=== PATIENT | female | born 1945 | race Caucasian/White ===

== ENCOUNTER 2021-04-03 14:08 | Inpatient (IN) ==
[2021-04-03] MEDS ORDERED: Dextrose Gel 15 GM/37.5 ML TUBE PO PRN ×2 (14:47)
[2021-04-03] MEDS ORDERED: D5% in Water 1,000 ML IVC PRN (14:47)
[2021-04-03] MEDS ORDERED: *HR* Dextrose 50 % in Water (Vial) 50 ML VIAL IVP PRN (14:47)
[2021-04-03] MEDS ORDERED: Ipratropium/Albuterol Neb 3 ML IH PRN (15:07)
[2021-04-03] MEDS: Insulin NPH/REG 70/30 100 UNIT/ML (x5UNIT) SUBQ SCH (16:31)
[2021-04-03] MEDS: Insulin LISPRO 300 UNITS/3 ML VIAL SUBQ SCH ×2 (16:31→20:23)
[2021-04-03] MEDS: Vancomycin Oral Soln 125 MG/2.5 ML UDC PO SCH ×2 (16:32→20:23)
[2021-04-03] MEDS ORDERED: Insulin NPH/REG 70/30 100 UNIT/ML (x5UNIT) SUBQ SCH (17:00)
[2021-04-03] MEDS: Lactobacillus 1 EACH CAP.SPRINK PO SCH (20:23)
[2021-04-03] MEDS: Sucralfate 1 GM TABLET PO SCH (20:23)
[2021-04-03] MEDS: Budesonide/Formoterol 80/4.5 1 PUFF INH IH SCH (21:30)
[2021-04-04] MEDS: *HR* Enoxaparin 40 MG/0.4 ML SYRINGE SQ SCH (06:31)
[2021-04-04 08:05] LABS: Basophils # 0.1 K/mcL (0.0-0.2); Basophils % 0.7 %; Eosinophils % 0.2 %; Hematocrit 27.9 % (35.3-44.9); Hemoglobin 8.9 g/dL (11.5-15.4); Immature Granulocytes % 10.2 % (0-4); Lymphocytes % 17.8 %; Mean Corpuscular HGB Conc 31.9 g/dL (31.6-35.5); Mean Corpuscular Hemoglobin 28.4 pg (28.0-33.3); Mean Corpuscular Volume 89.1 fL (83.0-100.0); Mean Platelet Volume 10.1 fL (9.4-12.4); Monocytes # 1.2 K/mcL (0.0-1.3); Monocytes % 10.6 %; Neutrophils # 6.8 K/mcL (1.6-8.9); Nucleated Red Blood Cells 0.6 /100 WBC (0); Platelet Count 409 K/mcL (140-400); Red Blood Count 3.13 M/mcL (3.82-4.97); Red Cell Distribution Width 15.4 % (11.5-14.5); Segmented Neutrophils % 60.5 %; White Blood Count 11.2 K/mcL (4.3-11.1)
[2021-04-04 08:18] LABS: BUN/Creatinine Ratio 37 (6-26); Blood Urea Nitrogen 34 mg/dL (8-23); Calcium 8.2 mg/dL (8.6-10.3); Carbon Dioxide 29 mEq/L (23-29); Chloride 97 mEq/L (98-107); Glucose 187 mg/dL (70-105); Osmolality,Calculated 291 (280-300); Potassium 4.6 mEq/L (3.5-5.1); Sodium 134 mEq/L (136-145); eGFR For African Americans > 60 (> 60); eGFR For Non-African Americans 59 (> 60)
[2021-04-04] MEDS: Vancomycin Oral Soln 125 MG/2.5 ML UDC PO SCH ×4 (08:34→20:23)
[2021-04-04] MEDS: dexAMETHasone 4 MG TABLET PO SCH (08:34)
[2021-04-04] MEDS: Aspirin 81 MG TAB.CHEW PO SCH (08:35)
[2021-04-04] MEDS: Isosorbide MONOnitrate (24 HR) 30 MG TAB.ER.24H PO SCH (08:35)
[2021-04-04] MEDS: Insulin NPH/REG 70/30 100 UNIT/ML (x5UNIT) SUBQ SCH ×2 (08:35→16:41)
[2021-04-04] MEDS: Lactobacillus 1 EACH CAP.SPRINK PO SCH ×2 (08:35→20:23)
[2021-04-04] MEDS: Insulin LISPRO 300 UNITS/3 ML VIAL SUBQ SCH ×6 (08:35→20:24)
[2021-04-04] MEDS: Budesonide/Formoterol 80/4.5 1 PUFF INH IH SCH ×2 (08:47→21:52)
[2021-04-04] MEDS ORDERED: Insulin NPH/REG 70/30 100 UNIT/ML (x5UNIT) SUBQ SCH ×2 (09:00→17:00)
[2021-04-04] MEDS: Sucralfate 1 GM TABLET PO SCH (20:23)
[2021-04-05] MEDS ORDERED: *HR* LORazepam 2 MG/ML VIAL IVP ONE (04:02)
[2021-04-05] MEDS ORDERED: Insulin LISPRO 300 UNITS/3 ML VIAL SUBQ ONE (04:16)
[2021-04-05] MEDS: *HR* Enoxaparin 40 MG/0.4 ML SYRINGE SQ SCH (05:42)
[2021-04-05] MEDS ORDERED: Insulin NPH/REG 70/30 100 UNIT/ML (x5UNIT) SUBQ SCH (08:00)
[2021-04-05] MEDS: Budesonide/Formoterol 80/4.5 1 PUFF INH IH SCH ×2 (08:29→22:27)
[2021-04-05] MEDS: Vancomycin Oral Soln 125 MG/2.5 ML UDC PO SCH ×4 (08:55→20:04)
[2021-04-05] MEDS: Insulin LISPRO 300 UNITS/3 ML VIAL SUBQ SCH ×4 (08:55→20:04)
[2021-04-05] MEDS: Lactobacillus 1 EACH CAP.SPRINK PO SCH ×2 (08:56→20:04)
[2021-04-05] MEDS: dexAMETHasone 4 MG TABLET PO SCH (08:56)
[2021-04-05] MEDS: Isosorbide MONOnitrate (24 HR) 30 MG TAB.ER.24H PO SCH (08:56)
[2021-04-05] MEDS: Aspirin 81 MG TAB.CHEW PO SCH (08:56)
[2021-04-05] MEDS: Insulin NPH/REG 70/30 100 UNIT/ML (x5UNIT) SUBQ SCH (17:03)
[2021-04-05] MEDS: Sucralfate 1 GM TABLET PO SCH (20:04)
[2021-04-05] MEDS: *HR* LORazepam 0.5 MG TABLET PO PRN (21:22)
[2021-04-06] MEDS: *HR* Enoxaparin 40 MG/0.4 ML SYRINGE SQ SCH (05:17)
[2021-04-06] MEDS: Aspirin 81 MG TAB.CHEW PO SCH (08:07)
[2021-04-06] MEDS: dexAMETHasone 4 MG TABLET PO SCH (08:08)
[2021-04-06] MEDS: Lactobacillus 1 EACH CAP.SPRINK PO SCH ×2 (08:08→21:23)
[2021-04-06] MEDS: Isosorbide MONOnitrate (24 HR) 30 MG TAB.ER.24H PO SCH (08:08)
[2021-04-06] MEDS: Vancomycin Oral Soln 125 MG/2.5 ML UDC PO SCH ×4 (08:09→21:23)
[2021-04-06] MEDS: Insulin LISPRO 300 UNITS/3 ML VIAL SUBQ SCH ×4 (08:12→21:23)
[2021-04-06] MEDS: Insulin NPH/REG 70/30 100 UNIT/ML (x5UNIT) SUBQ SCH ×2 (08:16→17:05)
[2021-04-06] MEDS: Budesonide/Formoterol 80/4.5 1 PUFF INH IH SCH ×2 (09:04→21:18)
[2021-04-06] MEDS: *HR* LORazepam 0.5 MG TABLET PO PRN (21:23)
[2021-04-06] MEDS: Sucralfate 1 GM TABLET PO SCH (21:23)
[2021-04-07] MEDS: *HR* Enoxaparin 40 MG/0.4 ML SYRINGE SQ SCH (05:36)
[2021-04-07] MEDS: Budesonide/Formoterol 80/4.5 1 PUFF INH IH SCH ×2 (09:50→20:51)
[2021-04-07] MEDS: Insulin LISPRO 300 UNITS/3 ML VIAL SUBQ SCH ×4 (10:32→20:25)
[2021-04-07] MEDS: Vancomycin Oral Soln 125 MG/2.5 ML UDC PO SCH ×4 (10:32→20:24)
[2021-04-07] MEDS: Aspirin 81 MG TAB.CHEW PO SCH (10:33)
[2021-04-07] MEDS: Isosorbide MONOnitrate (24 HR) 30 MG TAB.ER.24H PO SCH (10:33)
[2021-04-07] MEDS: dexAMETHasone 4 MG TABLET PO SCH (10:33)
[2021-04-07] MEDS: Lactobacillus 1 EACH CAP.SPRINK PO SCH ×2 (10:33→20:24)
[2021-04-07] MEDS: Insulin NPH/REG 70/30 100 UNIT/ML (x5UNIT) SUBQ SCH ×2 (10:37→17:17)
[2021-04-07] MEDS ORDERED: Insulin Human Regular 10 UNIT in 0.9 % Sodium Chloride 10 ML SUBQ ONE (11:47)
[2021-04-07] MEDS ORDERED: Insulin NPH 100 UNIT/ML (x5UNIT) SUBQ ONE (11:58)
[2021-04-07] MEDS ORDERED: Insulin LISPRO 300 UNITS/3 ML VIAL SUBQ ONE ×2 (12:15→13:32)
[2021-04-07] MEDS ORDERED: Perflutren Lipid Microsphere 1.3 ML in 0.9 % Sodium Chloride 8.7 ML IVP PRN (13:29)
[2021-04-07] MEDS ORDERED: *HR* Heparin 5,000 UNIT/ML VIAL IVP PRN ×2 (15:36)
[2021-04-07] MEDS ORDERED: *HR* Heparin 5,000 UNIT/ML VIAL IVP ONE (15:36)
[2021-04-07] MEDS ORDERED: Furosemide 20 MG/2 ML VIAL IVP SCH (15:45)
[2021-04-07 16:02] LABS: Hematocrit 27.3 % (35.3-44.9); Hemoglobin 8.6 g/dL (11.5-15.4); Mean Corpuscular HGB Conc 31.5 g/dL (31.6-35.5); Mean Corpuscular Hemoglobin 28.7 pg (28.0-33.3); Mean Platelet Volume 9.5 fL (9.4-12.4); Platelet Count 330 K/mcL (140-400); Red Cell Distribution Width 16.1 % (11.5-14.5)
[2021-04-07 16:35] LABS: Heparin anti-factor XA UFH 0.27 IU/mL (0.30-0.70)
[2021-04-07 16:36] LABS: INR 0.9; Prothrombin Time 10.7 Seconds (9.4-12.1)
[2021-04-07] MEDS: Heparin 25,000UNIT/250ML 1/2NS 25,000 UNIT/250 ML IV.SOLN IVC SCH (17:06)
[2021-04-07] MEDS: Furosemide 20 MG/2 ML VIAL IVP SCH (17:13)
[2021-04-07] MEDS ORDERED: 0.9 % Sodium Chloride 1,000 ML IVC SCH (19:30)
[2021-04-07] MEDS: Sucralfate 1 GM TABLET PO SCH (20:24)
[2021-04-07] MEDS: *HR* LORazepam 0.5 MG TABLET PO PRN (20:24)
[2021-04-08 04:14] LABS: Hematocrit 26.6 % (35.3-44.9); Hemoglobin 8.4 g/dL (11.5-15.4); Mean Corpuscular HGB Conc 31.6 g/dL (31.6-35.5); Mean Corpuscular Hemoglobin 28.6 pg (28.0-33.3); Mean Corpuscular Volume 90.5 fL (83.0-100.0); Mean Platelet Volume 10.2 fL (9.4-12.4); Platelet Count 338 K/mcL (140-400); Red Blood Count 2.94 M/mcL (3.82-4.97); Red Cell Distribution Width 15.9 % (11.5-14.5); White Blood Count 11.5 K/mcL (4.3-11.1)
[2021-04-08 05:52] LABS: Calcium 8.6 mg/dL (8.6-10.3); Potassium 5.2 mEq/L (3.5-5.1)
[2021-04-08] MEDS: Insulin LISPRO 300 UNITS/3 ML VIAL SUBQ SCH ×4 (09:04→20:28)
[2021-04-08] MEDS: Vancomycin Oral Soln 125 MG/2.5 ML UDC PO SCH ×4 (09:05→20:25)
[2021-04-08] MEDS: Furosemide 20 MG/2 ML VIAL IVP SCH (09:06)
[2021-04-08] MEDS: Lactobacillus 1 EACH CAP.SPRINK PO SCH ×2 (09:06→20:25)
[2021-04-08] MEDS: Isosorbide MONOnitrate (24 HR) 30 MG TAB.ER.24H PO SCH (09:06)
[2021-04-08] MEDS: Aspirin 81 MG TAB.CHEW PO SCH (09:06)
[2021-04-08] MEDS: Insulin NPH/REG 70/30 100 UNIT/ML (x5UNIT) SUBQ SCH ×2 (09:22→17:30)
[2021-04-08] MEDS: Budesonide/Formoterol 80/4.5 1 PUFF INH IH SCH ×2 (09:34→21:02)
[2021-04-08] MEDS: Heparin 25,000UNIT/250ML 1/2NS 25,000 UNIT/250 ML IV.SOLN IVC SCH (09:34)
[2021-04-08] MEDS ORDERED: Insulin LISPRO 300 UNITS/3 ML VIAL SUBQ ONE (11:15)
[2021-04-08 17:30] LABS: Basophils % 0.3 %; Eosinophils # 0.1 K/mcL (0.0-0.6); Eosinophils % 0.9 %; Hematocrit 27.9 % (35.3-44.9); Hemoglobin 8.8 g/dL (11.5-15.4); Mean Corpuscular HGB Conc 31.5 g/dL (31.6-35.5); Mean Corpuscular Hemoglobin 28.5 pg (28.0-33.3); Mean Corpuscular Volume 90.3 fL (83.0-100.0); Mean Platelet Volume 9.7 fL (9.4-12.4); Monocytes # 1.5 K/mcL (0.0-1.3); Monocytes % 12.3 %; Neutrophils # 8.2 K/mcL (1.6-8.9); Platelet Count 340 K/mcL (140-400); Red Blood Count 3.09 M/mcL (3.82-4.97); Red Cell Distribution Width 16.2 % (11.5-14.5); Segmented Neutrophils % 65.5 %; White Blood Count 12.5 K/mcL (4.3-11.1)
[2021-04-08] MEDS: Sucralfate 1 GM TABLET PO SCH (20:25)
[2021-04-08] MEDS: *HR* LORazepam 0.5 MG TABLET PO PRN (20:30)
[2021-04-09 06:18] LABS: Hematocrit 26.5 % (35.3-44.9); Hemoglobin 8.4 g/dL (11.5-15.4); Mean Corpuscular HGB Conc 31.7 g/dL (31.6-35.5); Mean Corpuscular Hemoglobin 29.2 pg (28.0-33.3); Mean Platelet Volume 10.6 fL (9.4-12.4); Platelet Count 305 K/mcL (140-400); Red Blood Count 2.88 M/mcL (3.82-4.97); Red Cell Distribution Width 16.4 % (11.5-14.5); White Blood Count 8.8 K/mcL (4.3-11.1)
[2021-04-09 06:36] LABS: Calcium 8.7 mg/dL (8.6-10.3); Potassium 4.5 mEq/L (3.5-5.1)
[2021-04-09] MEDS: Isosorbide MONOnitrate (24 HR) 30 MG TAB.ER.24H PO SCH (08:20)
[2021-04-09] MEDS: Aspirin 81 MG TAB.CHEW PO SCH (08:20)
[2021-04-09] MEDS: Lactobacillus 1 EACH CAP.SPRINK PO SCH ×2 (08:20→21:27)
[2021-04-09] MEDS: Insulin LISPRO 300 UNITS/3 ML VIAL SUBQ SCH ×4 (08:21→21:35)
[2021-04-09] MEDS: Vancomycin Oral Soln 125 MG/2.5 ML UDC PO SCH ×3 (08:23→16:28)
[2021-04-09] MEDS: Insulin NPH/REG 70/30 100 UNIT/ML (x5UNIT) SUBQ SCH ×2 (08:23→16:34)
[2021-04-09] MEDS: Budesonide/Formoterol 80/4.5 1 PUFF INH IH SCH ×2 (09:21→21:16)
[2021-04-09] MEDS: *HR* LORazepam 0.5 MG TABLET PO PRN (21:27)
[2021-04-09] MEDS: Sucralfate 1 GM TABLET PO SCH (21:27)
[2021-04-10] MEDS: Isosorbide MONOnitrate (24 HR) 30 MG TAB.ER.24H PO SCH (07:36)
[2021-04-10] MEDS: Lactobacillus 1 EACH CAP.SPRINK PO SCH ×2 (07:36→21:44)
[2021-04-10] MEDS: Aspirin 81 MG TAB.CHEW PO SCH (07:36)
[2021-04-10] MEDS: Insulin NPH/REG 70/30 100 UNIT/ML (x5UNIT) SUBQ SCH ×2 (07:37→16:42)
[2021-04-10] MEDS: Insulin LISPRO 300 UNITS/3 ML VIAL SUBQ SCH ×4 (07:37→21:45)
[2021-04-10] MEDS: Budesonide/Formoterol 80/4.5 1 PUFF INH IH SCH ×2 (08:06→21:39)
[2021-04-10] MEDS: Sucralfate 1 GM TABLET PO SCH (21:44)
[2021-04-10] MEDS: *HR* LORazepam 0.5 MG TABLET PO PRN (21:44)
[2021-04-11] MEDS: Aspirin 81 MG TAB.CHEW PO SCH (09:08)
[2021-04-11] MEDS: Isosorbide MONOnitrate (24 HR) 30 MG TAB.ER.24H PO SCH (09:08)
[2021-04-11] MEDS: Insulin NPH/REG 70/30 100 UNIT/ML (x5UNIT) SUBQ SCH ×2 (09:09→16:56)
[2021-04-11] MEDS: Lactobacillus 1 EACH CAP.SPRINK PO SCH ×2 (09:09→20:38)
[2021-04-11] MEDS: Insulin LISPRO 300 UNITS/3 ML VIAL SUBQ SCH ×4 (09:09→20:41)
[2021-04-11] MEDS: Budesonide/Formoterol 80/4.5 1 PUFF INH IH SCH ×2 (10:31→22:14)
[2021-04-11] MEDS: *HR* LORazepam 0.5 MG TABLET PO PRN (20:38)
[2021-04-11] MEDS: Sucralfate 1 GM TABLET PO SCH (20:38)
[2021-04-12 07:14] LABS: Basophils % 0.4 %; Eosinophils # 0.2 K/mcL (0.0-0.6); Eosinophils % 2.4 %; Hematocrit 25.7 % (35.3-44.9); Hemoglobin 8.1 g/dL (11.5-15.4); Immature Granulocytes % 3.8 % (0-4); Lymphocytes # 1.5 K/mcL (0.6-4.6); Lymphocytes % 18.1 %; Mean Corpuscular HGB Conc 31.5 g/dL (31.6-35.5); Mean Corpuscular Hemoglobin 28.9 pg (28.0-33.3); Mean Corpuscular Volume 91.8 fL (83.0-100.0); Mean Platelet Volume 10.8 fL (9.4-12.4); Monocytes # 0.9 K/mcL (0.0-1.3); Monocytes % 11.8 %; Neutrophils # 5.1 K/mcL (1.6-8.9); Platelet Count 212 K/mcL (140-400); Red Cell Distribution Width 16.5 % (11.5-14.5); Segmented Neutrophils % 63.5 %
[2021-04-12 07:39] LABS: BUN/Creatinine Ratio 48 (6-26); Blood Urea Nitrogen 40 mg/dL (8-23); Calcium 8.6 mg/dL (8.6-10.3); Carbon Dioxide 30 mEq/L (23-29); Chloride 100 mEq/L (98-107); Glucose 232 mg/dL (70-105); Osmolality,Calculated 297 (280-300); Potassium 4.6 mEq/L (3.5-5.1); Sodium 135 mEq/L (136-145); eGFR For African Americans > 60 (> 60); eGFR For Non-African Americans > 60 (> 60)
[2021-04-12] MEDS: Aspirin 81 MG TAB.CHEW PO SCH (09:34)
[2021-04-12] MEDS: Lactobacillus 1 EACH CAP.SPRINK PO SCH ×2 (09:34→20:41)
[2021-04-12] MEDS: Isosorbide MONOnitrate (24 HR) 30 MG TAB.ER.24H PO SCH (09:34)
[2021-04-12] MEDS: Insulin LISPRO 300 UNITS/3 ML VIAL SUBQ SCH ×4 (09:35→20:42)
[2021-04-12] MEDS: Insulin NPH/REG 70/30 100 UNIT/ML (x5UNIT) SUBQ SCH ×2 (09:35→17:26)
[2021-04-12] MEDS: Budesonide/Formoterol 80/4.5 1 PUFF INH IH SCH ×2 (10:11→20:44)
[2021-04-12] MEDS: Sucralfate 1 GM TABLET PO SCH (20:41)
[2021-04-12] MEDS: *HR* LORazepam 0.5 MG TABLET PO PRN (20:41)
[2021-04-13] MEDS: Insulin LISPRO 300 UNITS/3 ML VIAL SUBQ SCH ×4 (07:53→19:45)
[2021-04-13] MEDS: Aspirin 81 MG TAB.CHEW PO SCH (08:26)
[2021-04-13] MEDS: Lactobacillus 1 EACH CAP.SPRINK PO SCH ×2 (08:26→19:41)
[2021-04-13] MEDS: Isosorbide MONOnitrate (24 HR) 30 MG TAB.ER.24H PO SCH (08:26)
[2021-04-13] MEDS: Insulin NPH/REG 70/30 100 UNIT/ML (x5UNIT) SUBQ SCH ×2 (08:26→18:04)
[2021-04-13] MEDS: Budesonide/Formoterol 80/4.5 1 PUFF INH IH SCH ×2 (10:08→21:28)
[2021-04-13] MEDS ORDERED: Acetaminophen 325 MG TABLET PO PRN (14:40)
[2021-04-13] MEDS: *HR* LORazepam 0.5 MG TABLET PO PRN (19:41)
[2021-04-13] MEDS: Sucralfate 1 GM TABLET PO SCH (19:41)
[2021-04-14] MEDS ORDERED: Methyl Salicylate/Menthol 57 APPL/57 GM TUBE TP PRN (03:47)
[2021-04-14] MEDS ORDERED: Methyl Salicylate/Menthol 85 APPL/85 GM TUBE TP PRN (04:00)
[2021-04-14] MEDS: Isosorbide MONOnitrate (24 HR) 30 MG TAB.ER.24H PO SCH (08:07)
[2021-04-14] MEDS: Lactobacillus 1 EACH CAP.SPRINK PO SCH ×2 (08:07→21:12)
[2021-04-14] MEDS: Aspirin 81 MG TAB.CHEW PO SCH (08:07)
[2021-04-14] MEDS: Insulin LISPRO 300 UNITS/3 ML VIAL SUBQ SCH ×4 (08:08→19:42)
[2021-04-14] MEDS: Insulin NPH/REG 70/30 100 UNIT/ML (x5UNIT) SUBQ SCH ×2 (08:08→16:28)
[2021-04-14] MEDS: Budesonide/Formoterol 80/4.5 1 PUFF INH IH SCH ×3 (09:44→22:01)
[2021-04-14] MEDS: Simethicone 80 MG TAB.CHEW PO PRN ×2 (10:15→21:12)
[2021-04-14] MEDS: Furosemide 20 MG TABLET PO SCH (12:32)
[2021-04-14] MEDS: Sucralfate 1 GM TABLET PO SCH (21:12)
[2021-04-14] MEDS: *HR* LORazepam 0.5 MG TABLET PO PRN (21:12)
[2021-04-15] MEDS: *HR* Enoxaparin 40 MG/0.4 ML SYRINGE SQ SCH (05:41)
[2021-04-15] MEDS: Furosemide 20 MG TABLET PO SCH (08:13)
[2021-04-15] MEDS: Isosorbide MONOnitrate (24 HR) 30 MG TAB.ER.24H PO SCH (08:13)
[2021-04-15] MEDS: Lactobacillus 1 EACH CAP.SPRINK PO SCH ×2 (08:13→20:01)
[2021-04-15] MEDS: Insulin LISPRO 300 UNITS/3 ML VIAL SUBQ SCH ×4 (08:14→20:02)
[2021-04-15] MEDS: Benzonatate 100 MG CAPSULE PO PRN (08:14)
[2021-04-15] MEDS: Aspirin 81 MG TAB.CHEW PO SCH (08:14)
[2021-04-15] MEDS: Insulin NPH/REG 70/30 100 UNIT/ML (x5UNIT) SUBQ SCH ×2 (08:14→16:20)
[2021-04-15] MEDS: Budesonide/Formoterol 80/4.5 1 PUFF INH IH SCH ×3 (10:09→21:36)
[2021-04-15] MEDS: GuaiFENesin/Dextromethorphan TABLET PO PRN (10:44)
[2021-04-15] MEDS: Sucralfate 1 GM TABLET PO SCH (20:02)
[2021-04-15] MEDS ORDERED: GuaiFENesin/Codeine Oral Soln 5 ML UDC PO PRN (20:52)
[2021-04-15] MEDS: *HR* LORazepam 0.5 MG TABLET PO PRN (21:56)
[2021-04-16] MEDS: *HR* Enoxaparin 40 MG/0.4 ML SYRINGE SQ SCH (05:24)
[2021-04-16 06:03] LABS: Basophils % 0.6 %; Eosinophils # 0.2 K/mcL (0.0-0.6); Eosinophils % 3.5 %; Hematocrit 25.9 % (35.3-44.9); Hemoglobin 8.1 g/dL (11.5-15.4); Immature Granulocytes % 2.1 % (0-4); Lymphocytes # 1.3 K/mcL (0.6-4.6); Lymphocytes % 19.7 %; Mean Corpuscular HGB Conc 31.3 g/dL (31.6-35.5); Mean Corpuscular Hemoglobin 28.8 pg (28.0-33.3); Mean Corpuscular Volume 92.2 fL (83.0-100.0); Mean Platelet Volume 10.4 fL (9.4-12.4); Monocytes # 0.8 K/mcL (0.0-1.3); Monocytes % 12.7 %; Neutrophils # 4.1 K/mcL (1.6-8.9); Platelet Count 208 K/mcL (140-400); Red Blood Count 2.81 M/mcL (3.82-4.97); Red Cell Distribution Width 16.1 % (11.5-14.5); Segmented Neutrophils % 61.4 %; White Blood Count 6.6 K/mcL (4.3-11.1)
[2021-04-16 06:27] LABS: BUN/Creatinine Ratio 51 (6-26); Blood Urea Nitrogen 40 mg/dL (8-23); Calcium 8.9 mg/dL (8.6-10.3); Carbon Dioxide 30 mEq/L (23-29); Chloride 102 mEq/L (98-107); Glucose 53 mg/dL (70-105); Osmolality,Calculated 293 (280-300); Sodium 138 mEq/L (136-145); eGFR For African Americans > 60 (> 60); eGFR For Non-African Americans > 60 (> 60)
[2021-04-16] MEDS: Insulin LISPRO 300 UNITS/3 ML VIAL SUBQ SCH ×4 (07:56→20:49)
[2021-04-16] MEDS: Lactobacillus 1 EACH CAP.SPRINK PO SCH ×2 (08:02→20:47)
[2021-04-16] MEDS: Insulin NPH/REG 70/30 100 UNIT/ML (x5UNIT) SUBQ SCH ×2 (08:02→16:59)
[2021-04-16] MEDS: Furosemide 20 MG TABLET PO SCH (08:02)
[2021-04-16] MEDS: Isosorbide MONOnitrate (24 HR) 30 MG TAB.ER.24H PO SCH (08:02)
[2021-04-16] MEDS: Aspirin 81 MG TAB.CHEW PO SCH (08:02)
[2021-04-16] MEDS: Budesonide/Formoterol 80/4.5 1 PUFF INH IH SCH ×2 (10:25→20:39)
[2021-04-16] MEDS: GuaiFENesin/Dextromethorphan TABLET PO PRN (11:33)
[2021-04-16] MEDS: Loratadine 10 MG TABLET PO SCH (16:59)
[2021-04-16] MEDS: *HR* LORazepam 0.5 MG TABLET PO PRN (20:47)
[2021-04-16] MEDS: Sucralfate 1 GM TABLET PO SCH (20:47)
[2021-04-17] MEDS: Benzonatate 100 MG CAPSULE PO PRN ×2 (05:41→21:10)
[2021-04-17] MEDS: *HR* Enoxaparin 40 MG/0.4 ML SYRINGE SQ SCH (05:41)
[2021-04-17] MEDS: Isosorbide MONOnitrate (24 HR) 30 MG TAB.ER.24H PO SCH (08:23)
[2021-04-17] MEDS: Loratadine 10 MG TABLET PO SCH (08:23)
[2021-04-17] MEDS: Aspirin 81 MG TAB.CHEW PO SCH (08:23)
[2021-04-17] MEDS: Lactobacillus 1 EACH CAP.SPRINK PO SCH ×2 (08:23→21:10)
[2021-04-17] MEDS: Insulin NPH/REG 70/30 100 UNIT/ML (x5UNIT) SUBQ SCH ×2 (08:25→18:04)
[2021-04-17] MEDS: Insulin LISPRO 300 UNITS/3 ML VIAL SUBQ SCH ×4 (08:29→21:16)
[2021-04-17] MEDS: Budesonide/Formoterol 80/4.5 1 PUFF INH IH SCH ×2 (09:54→21:16)
[2021-04-17] MEDS: Sucralfate 1 GM TABLET PO SCH (21:10)
[2021-04-17] MEDS: *HR* LORazepam 0.5 MG TABLET PO PRN (21:11)
[2021-04-18] MEDS: *HR* Enoxaparin 40 MG/0.4 ML SYRINGE SQ SCH (06:17)
[2021-04-18 07:33] VITALS: BP 137/65
[2021-04-18] MEDS: Budesonide/Formoterol 80/4.5 1 PUFF INH IH SCH (10:11)
[2021-04-18] MEDS: Insulin LISPRO 300 UNITS/3 ML VIAL SUBQ SCH ×2 (10:19→12:05)
[2021-04-18] MEDS: Aspirin 81 MG TAB.CHEW PO SCH (10:47)
[2021-04-18] MEDS: Isosorbide MONOnitrate (24 HR) 30 MG TAB.ER.24H PO SCH (10:47)
[2021-04-18] MEDS: Loratadine 10 MG TABLET PO SCH (10:47)
[2021-04-18] MEDS: Lactobacillus 1 EACH CAP.SPRINK PO SCH (10:47)
[2021-04-18] MEDS: Insulin NPH/REG 70/30 100 UNIT/ML (x5UNIT) SUBQ SCH (10:48)
== END 2021-04-18 12:45 | disposition home health service (06) | DRG 945 ==
LOC: INPPIK 14:20
PROVIDERS: ADMIT Family Medicine; ATTEND Family Medicine